=== PATIENT | female | born 1945 | race Two or more races ===

== ENCOUNTER 2020-07-20 08:59 | Emergency (ER) | payer OTHER, MEDICAID ==
[~2020-07-20] VITALS: Ht 160 cm; Wt 84.0 kg
[2020-07-20] MEDS ORDERED: KETOROLAC 15MG/ML VIAL IV ONE (09:45)
[2020-07-20] MEDS ORDERED: ACETAMINOPHEN 325MG TABLET PO ONE (10:45)
[2020-07-20 11:25] VITALS: BP 128/62
== END 2020-07-20 12:06 | disposition home or self-care (01) ==
LOC: ER 08:59
DX: S16.1XXA Strain of muscle, fascia and tendon at neck level, initial encounter (principal); X58.XXXA Exposure to other specified factors, initial encounter; Y93.89 Activity, other specified; Y92.89 Other specified places as the place of occurrence of the external cause; Y99.8 Other external cause status; I10 Essential (primary) hypertension; Z98.890 Other specified postprocedural states
CPT/HCPCS: 72040; 93005; 96374; 99283; J1885